=== PATIENT | male | born 1945 | race Caucasian/White ===

== ENCOUNTER 2016-09-04 21:20 | Emergency (ER) | payer MEDICARE, OTHER ==
[2016-09-04 22:36] LABS: BASOPHIL 0.8 % (0-2); EOSINOPHIL 1.2 % (0-7); HCT 43.2 % (42.0-52.0); HGB 14.4 g/dl (13.2-18.0); MCH 30.1 pg (25.0-31.0); MCHC 33.3 g/dL (32.0-36.0); MCV 90.2 fL (78.0-100.0); MONOCYTE 10.1 % (0-12); MPV 10.1 fL (6.0-9.5); NEUTROPHIL 68.9 % (41-80); PLT 193 K/uL (150-400); RBC 4.79 M/uL (4.70-6.00); RDW 13.7 % (11.5-14.0)
[2016-09-04 22:48] LABS: INR 1.07 (0.9-1.2); PROTHROMBIN TIME 13.5 SECONDS (11.7-14.0)
[2016-09-04 22:57] LABS: ALBUMIN 4.3 g/dL (3.4-4.8); BILIRUBIN - TOTAL 0.2 mg/dL (0.1-1.0); POTASSIUM 3.9 mmol/L (3.5-5.1); TOTAL PROTEIN 6.3 g/dL (6.4-8.3)
[2016-09-04 22:58] LABS: TROPONIN T < 0.010 ng/mL
== END 2016-09-05 00:49 | disposition home or self-care (01) ==
LOC: FER 21:20
PROVIDERS: Emergency Medicine
DX: I10 Essential (primary) hypertension (principal); R51 Headache; E78.5 Hyperlipidemia, unspecified; Z79.899 Other long term (current) drug therapy
CPT/HCPCS: 36415; 70450; 80053; 82550; 82553; 84152; 84484; 85025; 85610; 85730; 93005